=== PATIENT | female | born 1970 | race Hispanic/Latino ===

== ENCOUNTER 2024-09-16 16:59 | Emergency (ER) | payer OTHER ==
[~2024-09-16] VITALS: Ht 154.9 cm; Wt 65.8 kg
[2024-09-16 17:32] VITALS: PULSE 67; RESP 18; TEMP 97.6; O2SAT 98
[2024-09-16] MEDS ORDERED: KETOROLAC TROME10 MG PO (18:24)
== END 2024-09-16 19:00 | disposition home or self-care (01) ==
LOC: ER 19:00
DX: R51.9 Headache, unspecified (principal); S00.83XA Contusion of other part of head, initial encounter; M54.2 Cervicalgia; W18.39XA Other fall on same level, initial encounter; Y92.89 Other specified places as the place of occurrence of the external cause; K76.9 Liver disease, unspecified; F17.210 Nicotine dependence, cigarettes, uncomplicated
CPT/HCPCS: 70450; 72125; 99283